=== PATIENT | male | born 1950 | race Caucasian/White ===

== ENCOUNTER 2020-07-11 10:27 | Emergency (ER) | payer OTHER ==
[~2020-07-11] VITALS: Ht 167.6 cm; Wt 82.1 kg
[~2020-07-11 10:27] MED LIST: BACTERICIN30 GM TP
[2020-07-11] MEDS ORDERED: ORPHENADRINE C100 MG PO (16:38)
[2020-07-11] MEDS ORDERED: KETO10TA2 PO (16:38)
[2020-07-11] MEDS ORDERED: RELAFEN DS1000 MG PO (16:38)
== END 2020-07-11 16:49 | disposition home or self-care (01) ==
LOC: ER 10:27
DX: M54.16 Radiculopathy, lumbar region (principal); M25.561 Pain in right knee; M25.552 Pain in left hip; M25.551 Pain in right hip; R10.2 Pelvic and perineal pain

== ENCOUNTER → 2022-11-01 06:36 | Outpatient (CLI) | payer OTHER ==
[~2022-11-01 06:36] MED LIST changes: +KETO10TA2 PO; +ORPHENADRINE C100 MG PO; +RELAFEN DS1000 MG PO
== END | disposition home or self-care (01) ==
LOC: LAB 06:36
DX: Z01.812 Encounter for preprocedural laboratory examination (principal)

== ENCOUNTER 2022-11-01 07:17 | Outpatient (CLI) | payer OTHER | END 2022-11-01 07:23 | disposition home or self-care (01) | LOC: RX STUDY 07:17 | PROVIDERS: ATTEND Otolaryngology | DX: R13.10 Dysphagia, unspecified (principal) ==

== ENCOUNTER 2022-11-02 07:39 | Outpatient (CLI) | payer OTHER | END 2022-11-02 07:44 | disposition home or self-care (01) | LOC: TOM 07:39 | PROVIDERS: ATTEND Otolaryngology | DX: R13.10 Dysphagia, unspecified (principal); J38.01 Paralysis of vocal cords and larynx, unilateral | CPT/HCPCS: 71260; Q9965 ==

== ENCOUNTER 2023-09-06 11:20 | Outpatient (CLI) | payer OTHER | END 2023-09-06 11:26 | disposition home or self-care (01) | LOC: MRI 11:20 | PROVIDERS: ATTEND Orthopaedic Surgery | DX: S83.201A Bucket-handle tear of unspecified meniscus, current injury, left knee, initial encounter (principal) | CPT/HCPCS: 73721 ==

== ENCOUNTER 2023-09-18 09:03 | Outpatient (CLI) | payer OTHER | END 2023-09-18 09:04 | disposition home or self-care (01) | LOC: NUCLEAR 09:03 | PROVIDERS: ATTEND Specialist | DX: I70.0 Atherosclerosis of aorta (principal); R60.9 Edema, unspecified; R25.2 Cramp and spasm ==

== ENCOUNTER 2023-10-09 07:15 | Inpatient (IN) | payer OTHER ==
[~2023-10-09] VITALS: Ht 172.7 cm; Wt 79.4 kg
[2023-10-09 11:14] LABS: PH,URINE 6.5 (5.0-8.0); URINE APPEARANCE Clear; URINE BILIRRUBIN Negative (NEGATIVE); URINE BLOOD Negative; URINE COLOR Yellow; URINE GLUCOSE Negative (NEGATIVE); URINE LEUKOCYTE Negative; URINE NITRATE Negative; URINE PROTEIN Negative (NEGATIVE); URINE UROBILINOGEN 0.2 E.U./dl
[2023-10-09 11:18] LABS: URINE RBC 2.5 uL (0.0-20.8)
[2023-10-09 11:19] LABS: HEMATOCRIT 41.9 % (39.0-48.0); HEMOGLOBIN 14.3 g/dL (13-16.00); MEAN CELL VOLUME 96.5 fL (80.0-100.00); MEAN CORPUSCULAR HEMOGLOBIN 32.9 pg (27.00-32.0); MEAN CORPUSCULAR HGB CONC 34.1 g/dl (32.0-36.0); PLATELET COUNT 308 K/uL (150-450); RED BLOOD COUNT 4.34 M/uL (4.00-6.00)
[2023-10-09 11:53] LABS: URINE WBC 1.5 uL (0.0-23.2)
[2023-10-09 11:58] LABS: INR 0.95; PARTIAL THROMBOPLASTIN TIME 26.6 SECONDS (22.0-34.0)
[2023-10-09 12:03] LABS: ALBUMIN 4.4 gm/dL (3.4-5.0); BILIRUBIN TOTAL 0.57 mg/dL (0.3-1.2); CALCIUM 10.4 mg/dL (8.5-10.1); CREATININE SERUM 0.86 mg/dL (0.70-1.30); GFR 87.91; GLOBULINA 3.9 G/DL (2.4-3.5); POTASSIUM 4.79 mEq/L (3.5-5.1); TOTAL PROTEIN 8.3 gm/dL (6.4-8.2)
[2023-10-17 06:57] LABS: HEMATOCRIT 35.2 % (39.0-48.0); HEMOGLOBIN 12.3 g/dL (13-16.00); MEAN CELL VOLUME 93.1 fL (80.0-100.00); MEAN CORPUSCULAR HEMOGLOBIN 32.5 pg (27.00-32.0); MEAN CORPUSCULAR HGB CONC 34.9 g/dl (32.0-36.0); PLATELET COUNT 260 K/uL (150-450); RED BLOOD COUNT 3.78 M/uL (4.00-6.00); RED CELL DISTRIBUTION WIDTH 13.8 % (11.5-14.5)
[2023-10-18 06:56] LABS: HEMATOCRIT 32.6 % (39.0-48.0); HEMOGLOBIN 11.6 g/dL (13-16.00); MEAN CELL VOLUME 93.9 fL (80.0-100.00); MEAN CORPUSCULAR HEMOGLOBIN 33.5 pg (27.00-32.0); MEAN CORPUSCULAR HGB CONC 35.6 g/dl (32.0-36.0); PLATELET COUNT 257 K/uL (150-450); RED BLOOD COUNT 3.47 M/uL (4.00-6.00); RED CELL DISTRIBUTION WIDTH 13.2 % (11.5-14.5)
[2023-10-18] MEDS ORDERED: NORFLEX100MG PO (12:13)
[2023-10-18] MEDS ORDERED: GABAPENTIN100 MG PO (12:14)
[2023-10-18] MEDS ORDERED: OXYC1TAB9 PO (12:15)
[2023-10-18] MEDS ORDERED: XARELTO10 MG PO (12:19)
== END 2023-10-18 17:53 | DRG 470 ==
LOC: SURG 10-16 06:15 → O/R 10-16 06:15 → SURH 10-16 10:00 → SURG 10-16 11:50 → SURH 10-16 12:30 → SURG 10-18 17:53
PROVIDERS: ADMIT Orthopaedic Surgery; ATTEND Orthopaedic Surgery
PROC: 0SRC0JZ Replacement of Right Knee Joint with Synthetic Substitute, Open Approach (ICD-10-PCS; principal; 2023-10-16 12:30)
DX: M17.11 Unilateral primary osteoarthritis, right knee (principal); D62 Acute posthemorrhagic anemia; M85.661 Other cyst of bone, right lower leg

== ENCOUNTER 2025-05-25 07:15 | Inpatient (IN) | payer OTHER ==
[~2025-05-25] VITALS: Ht 167.6 cm; Wt 81.2 kg
[~2025-05-25 07:15] MED LIST changes: +GABAPENTIN100 MG PO; +NORFLEX100MG PO; +OXYC1TAB9 PO; +XARELTO10 MG PO
[2025-05-25 08:10] VITALS: BP 136/86
[2025-05-25 08:19] LABS: BASO % 0.9 % (0.1-1.2); EOS # 0.13 (0.04-0.54); EOS % 3.8 % (0.7-7.0); LYMPH # 1.26 (1.18-3.74); LYMPH % 37.2 % (19.3-53.1); MEAN PLATELET VOLUME 8.80 fl (9.4-12.4); MONO # 0.29 (0.24-0.82); MONO % 8.6 % (4.7-12.5); NEUT # 1.68 (1.56-6.13); NEUT % 49.5 % (34.0-71.1); RED CELL DISTRIBUTION WIDTH 13.1 % (11.6-14.4)
[2025-05-25 08:20] LABS: URINE APPEARANCE Clear; URINE BILIRRUBIN Negative (NEGATIVE); URINE BLOOD Negative; URINE COLOR Yellow; URINE GLUCOSE Negative (NEGATIVE); URINE KETONE Trace (NEGATIVE); URINE LEUKOCYTE Negative; URINE NITRATE Negative; URINE PROTEIN Trace (NEGATIVE); URINE UROBILINOGEN 0.2 E.U./dl
[2025-05-25 08:24] LABS: URINE BACTERIA 5.9 uL (0.0-1933); URINE RBC 3.8 uL (0.0-20.8)
[2025-05-25 08:34] LABS: URINE CAST 0.14 uL (0.0-1.40); URINE EPITHELIAL CELLS 1.0 uL (0.0-38.8); URINE WBC 1.0 uL (0.0-23.2)
[2025-05-25 09:02] LABS: INR 0.96
[2025-05-25 09:11] LABS: ALT/SGPT 21.0 U/L (12-78); AST/SGOT 14.0 U/L (15-37); BILIRUBIN TOTAL 0.45 mg/dL (0.3-1.2); BUN CREA RATIO 18.0 (7.0-25.0); CREATININE SERUM 0.84 mg/dL (0.70-1.30); GFR 89.82; GLOBULINA 3.6 G/DL (2.4-3.5); GLUCOSE FASTING 105.0 mg/dL (65-100); OSMOLALITY SERUM 282.0 MOSM/KG (275-295)
[2025-06-02] MEDS ORDERED: ONDANSETRON HCL 2 MG/ML VIAL IV PRN (07:45)
[2025-06-02] MEDS ORDERED: OxyCODONE HCL 5 MG TABLET (ROXICODONE) PO PRN (12:00)
[2025-06-02] MEDS ORDERED: CEFAZOLIN SODIUM 1,000 MG VIAL IV SCH (12:00)
[2025-06-02] MEDS ORDERED: MORPHINE SULFATE 4 MG/ML CARTRIDGE IV SCH (12:00)
[2025-06-02] MEDS ORDERED: MORPHINE SULFATE 4 MG/ML VIAL IV ONE (18:00)
[2025-06-02] MEDS ORDERED: ORPHENADRINE CITRATE 100 MG TABLET PO SCH (21:00)
[2025-06-02] MEDS ORDERED: GABAPENTIN 100 MG CAPSULE PO SCH (21:00)
[2025-06-03 00:36] VITALS: BP 153/76; O2SAT 97
[2025-06-03 07:54] LABS: BASO % 0.2 % (0.1-1.2); EOS # 0.01 (0.04-0.54); EOS % 0.2 % (0.7-7.0); LYMPH # 0.67 (1.18-3.74); LYMPH % 11.6 % (19.3-53.1); MEAN PLATELET VOLUME 9.00 fl (9.4-12.4); MONO # 0.56 (0.24-0.82); MONO % 9.7 % (4.7-12.5); NEUT # 4.54 (1.56-6.13); NEUT % 78.1 % (34.0-71.1); RED CELL DISTRIBUTION WIDTH 12.5 % (11.6-14.4)
[2025-06-03] MEDS ORDERED: RIVAROXABAN 10 MG TAB PO SCH (09:00)
[2025-06-03 09:49] VITALS: BP 152/80; O2SAT 95
[2025-06-03] MEDS ORDERED: IRON FUM,PS/FOLIC ACID/VITC/B3 1 CAP CAPSULE PO NR (12:15)
[2025-06-03] MEDS ORDERED: Cyanocobalamin/Mecobalamin 1 TAB.SL SL NR (12:15)
[2025-06-03 17:20] VITALS: BP 157/72; O2SAT 96
[2025-06-04 00:59] VITALS: BP 137/74; O2SAT 97
[2025-06-04 08:43] LABS: BASO % 0.1 % (0.1-1.2); EOS # 0.00 (0.04-0.54); EOS % 0.0 % (0.7-7.0); LYMPH # 0.64 (1.18-3.74); LYMPH % 7.3 % (19.3-53.1); MEAN PLATELET VOLUME 9.20 fl (9.4-12.4); MONO # 0.94 (0.24-0.82); MONO % 10.7 % (4.7-12.5); NEUT # 7.19 (1.56-6.13); NEUT % 81.6 % (34.0-71.1); RED CELL DISTRIBUTION WIDTH 12.8 % (11.6-14.4)
[2025-06-04] MEDS ORDERED: IRON FUM,PS/FOLIC ACID/VITC/B3 1 CAP CAPSULE PO SCH (09:00)
[2025-06-04] MEDS ORDERED: Cyanocobalamin/Mecobalamin 1 TAB.SL SL SCH (09:00)
[2025-06-04] MEDS ORDERED: XARELTO10 MG PO (11:14)
[2025-06-04] MEDS ORDERED: NORFLEX100MG PO (11:14)
[2025-06-04] MEDS ORDERED: OXYCODONE HCL5 MG PO (11:15)
[2025-06-04] MEDS ORDERED: GABAPENTIN100 MG PO (11:15)
== END 2025-06-04 13:15 | DRG 470 ==
LOC: SURH 06-02 07:15 → O/R 06-02 09:01 → SURH 06-02 09:01
PROVIDERS: ADMIT Orthopaedic Surgery; ATTEND Orthopaedic Surgery
PROC: 0QUF07Z Supplement Left Patella with Autologous Tissue Substitute, Open Approach (ICD-10-PCS; 2025-06-02)
PROC: 0SRD0JZ Replacement of Left Knee Joint with Synthetic Substitute, Open Approach (ICD-10-PCS; principal; 2025-06-02 14:00)
DX: M17.12 Unilateral primary osteoarthritis, left knee (principal); D62 Acute posthemorrhagic anemia; M85.662 Other cyst of bone, left lower leg; Z74.09 Other reduced mobility